=== PATIENT | female | born 1980 | race Caucasian/White ===

== ENCOUNTER 2016-10-16 20:32 | Emergency (ER) | payer OTHER ==
--- NOTE | ~2016-10-16 | CT122 ---
[facility] A Service [facility] RADIOLOGY TEXT RESULTS PATIENT: VERNA MCKNIGHT LOCATION: SED : [birth year] UNIT #: [id number] AGE: [address]: Rudy Kulkarni DO SEX: F ORDER DR: [id number] [place] [id number] E MR#: [id number] Acc #: [id number] NAME: VERNA MCKNIGHT. : 1980 SEX: F STUDY DATE/TIME: 10/17/2016 1:31 UNIT: SED ROOM: STUDY DESCRIPTION: CT Thoracic Spine Wo Cont Attending Physician: Rudy Kulkarni D.O. Ordering Physician: Rudy Kulkarni D.O. Primary Care Physician: Stan Hagen Jr., A.P.R.N. MEDICAL IMAGING REPORT This report is preliminary unless electronic signature is present. EXAM CT thoracic spine without contrast. INDICATION Mid to low back pain and incontinence. Acute onset. PROCEDURE Unenhanced CT of the thoracic spine. This CT exam was performed with one or more of the following radiation dose reduction techniques: automatic exposure control, adjustment of mA and/or kV according to patient size, and iterative reconstruction. COMPARISON None. FINDINGS Thoracic bodies maintain normal height. Alignment within normal limits. There is [id number] multilevel degenerative change. There is no critical central canal narrowing. No paravertebral mass. IMPRESSION 1. No acute findings. 2. Mild to moderate multilevel degenerative disc disease. No critical central canal narrowing. Dictated by... Kendall Francisco M.D. THIS IS AN ELECTRONICALLY VERIFIED REPORT Kendall Francisco M.D. at 10/21/2016 7:30 AM [facility] A Service [facility] RADIOLOGY TEXT RESULTS PATIENT: VERNA MCKNIGHT LOCATION: SED : [birth year] UNIT #: [id number] AGE: [address]: Hottman,Rudy M DO SEX: F ORDER DR: YANICK/qi TD: 10/17/2016 04:03 JOB #: [id number] MEDICAL IMAGING REPORT Page 1 of 1
--- NOTE | ~2016-10-16 | CT2 ---
[facility] A Service [facility] RADIOLOGY TEXT RESULTS PATIENT: VERNA MCKNIGHT LOCATION: SED : [birth year] UNIT #: [id number] AGE: [address]: Rudy Kulkarni DO SEX: F ORDER DR: [id number] [place] [id number] E MR#: [id number] Acc #: [id number] NAME: VERNA MCKNIGHT : 1980 SEX: F STUDY DATE/TIME: 10/17/2016 1:37 UNIT: SED ROOM: STUDY DESCRIPTION: CT Abd and Pelv W Cont Attending Physician: Rudy Kulkarni D.O. Ordering Physician: Rudy Kulkarni D.O. Primary Care Physician: Stan Hagen Jr., A.P.R.N. MEDICAL IMAGING REPORT This report is preliminary unless electronic signature is present. EXAM CT abdomen and pelvis with contrast. INDICATION Mid to lower back pain and incontinence. Acute onset. PROCEDURE Contrast-enhanced CT of the abdomen and pelvis. 100 mL Isovue-370. This CT exam was performed with one or more of the following radiation dose reduction techniques: automatic exposure control, adjustment of mA and/or kV according to patient size, and iterative reconstruction. COMPARISON 08/04/2016 FINDINGS ABDOMEN WITH CONTRAST: Included lung base is clear. Liver enlarged measuring 21.4 cm. The liver, spleen, kidneys, adrenal glands, pancreas unremarkable. Previous cholecystectomy. The bowel loops are nondilated. Appendix is normal. PELVIS WITH CONTRAST: No pelvic mass or fluid. No aggressive-appearing bone lesion. IMPRESSION 1. No acute findings. 2. Hepatomegaly. [facility] A Service of [facility] RADIOLOGY TEXT RESULTS PATIENT: VERNA MCKNIGHT LOCATION: SED : [birth year] UNIT #: [id number] AGE: [address]: Rudy Kulkarni DO SEX: F ORDER DR: Dictated by... Kendall E. Nolan, M.D. THIS IS AN ELECTRONICALLY VERIFIED REPORT Kendall Francisco M.D. at 10/21/2016 7:30 AM YANICK/qi TD: 10/17/2016 04:05 JOB #: [id number] MEDICAL IMAGING REPORT Page 1 of 1
[~2016-10-16 20:32] MED LIST: BACITRACIN30 GM TOP; BACTRIM DS TABL1 TAB PO; BENTYL20 M1 PO; CIPRO PO; EC-NAPROSYN500 MG; FLAGYL PO; GABAPENTIN600 MG PO; HYDROCODON-ACE1 EAC1; IBUPROFEN PO; LORTAB 10/500 T1 TAB PO; LORTAB 7.5-3251 EACH PO; NAPROXEN PO; NEURONTIN300 MG PO; NEURONTIN600 MG; NO MEDICATIONS; PHENERGAN PR; PHENERGAN25 M1 PO; TYLOX 5/500 CAP1 CAP PO; ULTRAM PO; VICODIN PO; VOLTAREN75 MG PO; ZESTRIL5 MG; ZOFRAN ODT4 MG/UDTAB PO; ZYPREXA PO
[2016-10-16 21:39] LABS: URINE SOURCE CLEAN CATCH
[2016-10-16 21:40] LABS: BASOPHIL# 0.1 X10e3 (0-0.3); BASOPHIL% 0.7 % (0-2.5); EOSINOPHIL# 0.2 X10e3 (0-0.7); EOSINOPHIL% 2.2 % (0.0-7.0); HEMOGLOBIN 12.9 gm/dL (12.0-16.0); LYMPHOCYTE# 3.1 X10e3 (1.0-3.5); LYMPHOCYTE% 30.6 % (17.0-45.0); MEAN CELL VOLUME 82.1 FL (83-96); MEAN CORPUSCULAR HEMOGLOBIN 26.5 PG (28-34); MEAN CORPUSCULAR HGB CONC 32.3 g/dL (30-36); MEAN PLATELET VOLUME 10.1 FL (6.5-11.5); MONOCYTE# 0.8 X10e3 (0-1.0); NEUTROPHIL# 5.9 X10e3 (1.5-7.1); NEUTROPHIL% 58.5 % (40-75); PLATELET COUNT 240 X10e3 (140-420); RED BLOOD COUNT 4.88 X10e (3.90-5.30); RED CELL DISTRIBUTION WIDTH 15.6 % (11.0-15.5); WHITE BLOOD COUNT 10.1 X10e3 (4.0-10.5)
[2016-10-16 21:42] LABS: URINE APPEARANCE CLEAR; URINE BILIRUBIN NEG (NEG); URINE COLOR YELLOW; URINE GLUCOSE NEG (NORM); URINE KETONE NEG (NEG); URINE LEUKOCYTE ESTERASE NEG (NEG); URINE NITRATE NEG (NEG); URINE PROTEIN NEG (NEG); URINE SPECIFIC GRAVITY 1.015 (1.003-1.035); URINE UROBILINOGEN 0.2 MG/DL (NORM)
[2016-10-16 21:43] LABS: DIFF IND NO
[2016-10-16 21:44] LABS: MICRO INDICATED? YES; URINE BLOOD TRACE (NEG)
[2016-10-16 21:51] LABS: CULTURE INDICATED? NO; URINE BACTERIA NEG (NEG); URINE SQUAMOUS EPITHELIAL CELL OCCAS /[HPF]; URINE WBC 0-2 /[HPF] (0-5)
[2016-10-16 21:58] LABS: CALCIUM SERUM 8.5 mg/dL (8.4-10.2); CREATININE SERUM 0.8 mg/dL (0.6-1.4); GLOM FILT RATE Estimated 96.3 mL/min (>60); POTASSIUM 3.4 mmol/L (3.5-5.1)
== END 2016-10-17 03:57 | disposition home or self-care (01) ==
LOC: SED 20:32
PROVIDERS: Emergency Medicine
DX: M54.5 Low back pain (principal); R32 Unspecified urinary incontinence; Z90.49 Acquired absence of other specified parts of digestive tract; Z91.040 Latex allergy status; F17.210 Nicotine dependence, cigarettes, uncomplicated
CPT/HCPCS: 36415; 72128; 74177; 80048; 81003; 84703; 85025; 96372; 96374; 96375; 99285; J1170; J1885; J2270; J2405; Q9967